=== PATIENT | female | born 1930 | race Caucasian/White ===

== ENCOUNTER 2020-10-16 14:37 | Emergency (ER) | payer OTHER, MEDICAID ==
[~2020-10-16] VITALS: Ht 152.4 cm; Wt 57.2 kg
[~2020-10-16 14:37] MED LIST: APIX2.5 PO; ASCO500T95 PO; DEC4 PO; ZINC220C28 PO
[2020-10-16 14:44] VITALS: BP 105/42
[2020-10-16] MEDS ORDERED: SODIUM CHLORIDE FLUSH 10 ML SYR IVF STA (15:21)
[2020-10-16 15:48] LABS: HEMATOCRIT 29.8 % (36-48); HEMOGLOBIN 9.9 g/dL (12.0-16.0); MEAN CORPUSCULAR HEMOGLOBIN 30 pg (27-31); MEAN CORPUSCULAR HGB CONC 33 g/dL (33-37); MEAN CORPUSCULAR VOLUME 89.1 fL (80-94); PLATELET COUNT (AUTO) 193 K/uL (140-450); RED BLOOD CELL COUNT(AUTO) 3.34 MIL/uL (4.20-5.40); RED CELL DISTRIBUTION WIDTH 15.7 % (11.6-13.7); WHITE BLOOD COUNT (AUTO) 10.3 K/uL (4.8-10.8)
[2020-10-16 16:00] LABS: BASOPHILS % (MANUAL) 1 % (0-2); LYMPHOCYTES % (MANUAL) 4 % (20-46); MONOCYTES % (MANUAL) 4 % (5-12)
[2020-10-16 16:05] LABS: ALBUMIN 2.5 g/dL (3.4-5.0); ANION GAP 11.7 (8-16); ASPARTATE AMINOTRANSFERASE 46 U/L (15-37); CARBON DIOXIDE 25.3 mmol/L (21-32); CHLORIDE 105 mmol/L (98-107); CREATININE 1.2 mg/dL (0.6-1.3); GLUCOSE 142 mg/dL (74-106); LIPASE 93 U/L (73-393); SODIUM SERUM 137 mmol/L (136-145); TOTAL BILIRUBIN 0.2 mg/dL (0.0-1.0); UREA NITROGEN, BLOOD 32 mg/dL (7-18)
[2020-10-16] MEDS ORDERED: KETOROLAC 15 MG/ML VIAL IVP ONE (16:25)
[2020-10-16] MEDS ORDERED: NACL 0.9% 1,000 ML IV ONE (16:25)
[2020-10-16] MEDS ORDERED: MAGN296S PO (17:54)
[2020-10-16] MEDS ORDERED: [UNRECOGNIZED DRUG - CODE] PO (17:56)
[2020-10-16 18:09] VITALS: BP 89/35
== END 2020-10-16 18:10 | disposition home or self-care (01) ==
LOC: MED 14:37
DX: K59.00 Constipation, unspecified (principal); E11.9 Type 2 diabetes mellitus without complications; I10 Essential (primary) hypertension; Z79.899 Other long term (current) drug therapy
CPT/HCPCS: 74176; 80053; 83615; 83690; 85025; 96361; 96374; 99284; J1885; J7030

== ENCOUNTER 2020-10-18 15:30 | Observation (INO) | payer OTHER, MEDICAID, SELFPAY ==
[~2020-10-18] VITALS: Ht 152.4 cm; Wt 59.9 kg
[~2020-10-18 15:30] MED LIST changes: +MAGN296S PO; +[UNRECOGNIZED DRUG - CODE] PO
[2020-10-18 15:39] VITALS: BP 113/45
--- NOTE | 2020-10-18 16:16 | NUR ---
DR MARCOS AT BEDSIDE EVALUATING PT
--- NOTE | 2020-10-18 16:20 | NUR ---
89 y/o F BIB daughter referred from Urgent Care to r/o DVT. Patient A&Ox4, ambulatory with slow, even gait. Daughter at bedside for translation states R thigh pain x 2 days that worsen today. Pt seen at and states 01/02, aching/intermittent, radiating to R leg. Patient noted with swelling and redness to right thigh. Denies any medications prior to arrival. Denies nausea, vomiting, fever, chills, SOB, chest pain, dizziness, headache. Skin red/warm/dry to R thigh. Pt placed into gown and cardiac cath lab technologist. VSS; respirations even/unlabored. Bed locked in lowest position, side rails x 1, call light in reach. PMH: HTN, DM2 Meds: Metoprlol ,simvastatin, lorsaan, vitamin D3, calcium carb, tresiba (Insulin U-100), ferrous sulfate, prophylthiour NKA
[2020-10-18] MEDS ORDERED: VANCOMYCIN 1,000 MG in DEXTROSE 5% 250 ML IV ONE (16:25)
--- NOTE | 2020-10-18 16:29 | NUR ---
US AT BEDSIDE
[2020-10-18] MEDS ORDERED: VANCOMYCIN 1,000 MG VIAL ONE (17:06)
[2020-10-18] MEDS ORDERED: cefTRIAXone 1,000 MG VIAL ONE (17:06)
--- NOTE | 2020-10-18 17:06 | NUR ---
LAB AT BEDSIDE.
[2020-10-18 17:22] LABS: BASOPHILS % (AUTO) 0.1 % (0.0-2.0); EOSINOPHILS % (AUTO) 0.1 % (0.0-4.0); HEMATOCRIT 28.9 % (36-48); HEMOGLOBIN 9.4 g/dL (12.0-16.0); LYMPHOCYTES # (AUTO) 0.5 K/uL (2.5-16.5); LYMPHOCYTES % (AUTO) 4.6 % (20.5-51.1); MEAN CORPUSCULAR HEMOGLOBIN 30 pg (27-31); MEAN CORPUSCULAR HGB CONC 33 g/dL (33-37); MEAN CORPUSCULAR VOLUME 90.7 fL (80-94); MONOCYTES # (AUTO) 0.4 K/uL (0.8-1.0); MONOCYTES % (AUTO) 3.4 % (1.7-9.3); NEUTROPHILS # (AUTO) 10.3 K/uL (1.8-7.7); NEUTROPHILS % (AUTO) 91.8 % (42.2-75.2); PLATELET COUNT (AUTO) 205 K/uL (140-450); RED BLOOD CELL COUNT(AUTO) 3.19 MIL/uL (4.20-5.40); RED CELL DISTRIBUTION WIDTH 15.2 % (11.6-13.7); WHITE BLOOD COUNT (AUTO) 11.2 K/uL (4.8-10.8)
[2020-10-18 17:31] LABS: ANION GAP 10.9 (8-16); CARBON DIOXIDE 23.9 mmol/L (21-32); CHLORIDE 103 mmol/L (98-107); CREATININE 1.3 mg/dL (0.6-1.3); GLUCOSE 162 mg/dL (74-106); POTASSIUM 4.8 mmol/L (3.5-5.1); SODIUM SERUM 133 mmol/L (136-145); UREA NITROGEN, BLOOD 29 mg/dL (7-18)
[2020-10-18 17:36] LABS: PROTHROMBIN TIME 9.7 secs (10.8-13.4)
--- NOTE | 2020-10-18 17:44 | NUR ---
Dr. Duncan is reevaluating patient at bedside.
--- NOTE | 2020-10-18 18:04 | NUR ---
Patient resting in low-fowlers in position of comfort. Daughter remains at bedside. patient monitor in place; VSS; respirations even/unlabored.
[2020-10-18] MEDS ORDERED: LORazepam 2 MG/ML VIAL IVP PRN (19:15)
[2020-10-18] MEDS ORDERED: MORPHINE SULFATE 2 MG/ML SYR IVP PRN (19:15)
[2020-10-18] MEDS ORDERED: ACETAMINOPHEN 325 MG TAB PO PRN (19:15)
[2020-10-18] MEDS ORDERED: HYDROcodone/APAP 5/325 MG 1 TAB TAB PO PRN (19:15)
[2020-10-18] MEDS ORDERED: ONDANSETRON 4 MG/2 ML VIAL IVP PRN (19:15)
[2020-10-18] MEDS ORDERED: VANCOMYCIN PER PHARMACY MC PRN (19:20)
--- NOTE | 2020-10-18 19:20 | NUR ---
Report and transfer of care endorsed to ANDRA Vasques.
--- NOTE | 2020-10-18 19:25 | NUR ---
DANIELA SWAB OBTAINED AND SENT TO LAB
--- NOTE | 2020-10-18 20:00 | NUR ---
AMBULATED TO BR, STEADY GAIT
--- NOTE | 2020-10-18 20:30 | NUR ---
RECEIVED REPORT FROM TOMAS SILVERMAN DAYSHIFT NURSE OVER THE PHONE, PT IN STABLE CONDITION.
[2020-10-18] MEDS ORDERED: PIPERACILLIN/TAZOBACTAM 3.375 GM in DEXTROSE 5% 50 ML IV SCH (21:00)
--- NOTE | 2020-10-18 21:30 | NUR ---
PT UP TO FLOOR AND TRANSFERRED TO ROOM 126 BED B. SHE IS AOX4 SERBIAN SPEAKING AND SKIN INTACT, SHE IS ON ROOM AIR AND HAS A R/FA 22 GUAGE SALINE LOCKED V/S FOLLOWS: T 98.3 P 72 R 20 B/P 123/51 02 100% ON ROOM AIR. PT ABLE TO AMBULATE TO BATHROOM WITH A STEADY GAIT. ALL UNIVERSAL FALLS PRECAUTIONS IN PLACE.
--- NOTE | 2020-10-19 | NUR ---
LAURA HUNG AND RUNNING ORDERED. PT EDUCATION PROVIDED AT BEDSIDE, PT VERBALIZED UNDERSTANDING.
[2020-10-19] MEDS ORDERED: PIPERACILLIN/TAZOBACTAM 2.25 GM VIAL IV ONE ×2 (00:19→06:43)
[2020-10-19 05:48] LABS: ALBUMIN 1.9 g/dL (3.4-5.0); ANION GAP 12.3 (8-16); ASPARTATE AMINOTRANSFERASE 16 U/L (15-37); CARBON DIOXIDE 25.9 mmol/L (21-32); CHLORIDE 107 mmol/L (98-107); CREATININE 1.3 mg/dL (0.6-1.3); GLUCOSE 128 mg/dL (74-106); MAGNESIUM 1.8 mg/dL (1.8-2.4); POTASSIUM 5.2 mmol/L (3.5-5.1); SODIUM SERUM 140 mmol/L (136-145); TOTAL BILIRUBIN 0.3 mg/dL (0.0-1.0); UREA NITROGEN, BLOOD 26 mg/dL (7-18)
[2020-10-19 06:37] LABS: BASOPHILS % (AUTO) 0.3 % (0.0-2.0); EOSINOPHILS # (AUTO) 0.2 K/uL (0-0.4); EOSINOPHILS % (AUTO) 1.4 % (0.0-4.0); HEMATOCRIT 28.3 % (36-48); HEMOGLOBIN 9.4 g/dL (12.0-16.0); LYMPHOCYTES # (AUTO) 0.6 K/uL (2.5-16.5); LYMPHOCYTES % (AUTO) 5.1 % (20.5-51.1); MEAN CORPUSCULAR HEMOGLOBIN 30 pg (27-31); MEAN CORPUSCULAR HGB CONC 33 g/dL (33-37); MEAN CORPUSCULAR VOLUME 89.3 fL (80-94); MONOCYTES # (AUTO) 0.3 K/uL (0.8-1.0); MONOCYTES % (AUTO) 2.8 % (1.7-9.3); NEUTROPHILS # (AUTO) 10.2 K/uL (1.8-7.7); NEUTROPHILS % (AUTO) 90.4 % (42.2-75.2); PLATELET COUNT (AUTO) 210 K/uL (140-450); RED BLOOD CELL COUNT(AUTO) 3.17 MIL/uL (4.20-5.40); RED CELL DISTRIBUTION WIDTH 15.3 % (11.6-13.7); WHITE BLOOD COUNT (AUTO) 11.3 K/uL (4.8-10.8)
[2020-10-19] MEDS: PIPER/TAZO 2.25GM/D5W PREMIX 50 ML IV SCH ×2 (06:51)
--- NOTE | 2020-10-19 07:25 | NUR ---
RECEIVE REPORT FROM TYPEWRITER OPERATOR AUTOMATIC NURSE FOR CONTINUITY OF CARE. PATIENT AWAKE. BREATHING EVEN AND UNLABORED. ALL SAFETY MEASURES IN PLACE. WILL CONTINUE TO MONITOR.
[2020-10-19 08:00] VITALS: BP 155/43
[2020-10-19] MEDS ORDERED: ENOXAPARIN 40 MG/0.4 ML SYR SUBQ SCH (09:00)
--- NOTE | 2020-10-19 09:03 | NUR ---
PATIENT HAS BEEN SCREENED AND CATEGORIZED LOW NUTRITION RISK. PATIENT WILL BE SEEN WITHIN 7 DAYS OF ADMISSION. 10/25/[address]
[2020-10-19] MEDS ORDERED: VANCOMYCIN 1,000 MG in DEXTROSE 5% 250 ML IV SCH (10:00)
[2020-10-19] MEDS: ENOXAPARIN 30 MG/0.3 ML SYR SUBQ SCH (10:22)
[2020-10-19] MEDS: ASPIRIN 81 MG TAB.CHEW PO SCH (10:23)
--- NOTE | 2020-10-19 10:23 | NUR ---
PATIENT AWAKE. BREATHING EVEN AND UNLABORED. ROUTINE MEDICATION GIVEN. ALL SAFETY MEASURES IN PLACE. WILL CONTINUE TO MONITOR.
--- NOTE | 2020-10-19 11:10 | NUR ---
DC PLANN[age] YRS OLD FEMALE PATIENT WAS ADMITTED FROM HOME WITH A DX OF CELLULITIS. PT HAS A HX OF DM AND HTN. VENOUS US OF BILATERAL LOWER EXTREMITY SHOWED NO DVT , MILD BILATERAL SUBCUTANEOUS EDEMA . ADMINISTERED IVF, IV ABX ZOSYN AND VANCOMYCIN AND CONTINUED HOME MEDS. RAPID COVID TEST NEGATIVE. BLOOD CULTURE PENDING. DC PLAN TO GO HOME WHEN STABLE. CM TO FOLLOW
[2020-10-19 12:00] VITALS: BP 125/57
[2020-10-19] MEDS ORDERED: PIPERACILLIN/TAZOBACTAM 2.25 GM in DEXTROSE 5% 50 ML IV SCH (12:00)
--- NOTE | 2020-10-19 12:40 | NUR ---
LATE ENTRY. STATED VANCOMYCIN AT 1109 DOSE COMPLETED AT 1240.
[2020-10-19 16:00] VITALS: BP 120/56
[2020-10-19 21:23] VITALS: BP 125/74
[2020-10-20 01:14] VITALS: BP 135/70
--- NOTE | 2020-10-20 01:29 | NUR ---
ativan given to calm her down
--- NOTE | 2020-10-20 02:50 | NUR ---
iv access came out i started a new one on left arm
[2020-10-20 04:52] VITALS: BP 128/78
--- NOTE | 2020-10-20 05:43 | NUR ---
pt selpt well pain was well controlled ,vss
[2020-10-20 06:00] LABS: ANION GAP 10.5 (8-16); CARBON DIOXIDE 25.9 mmol/L (21-32); CHLORIDE 107 mmol/L (98-107); CREATININE 1.3 mg/dL (0.6-1.3); GLUCOSE 148 mg/dL (74-106); POTASSIUM 5.4 mmol/L (3.5-5.1); SODIUM SERUM 138 mmol/L (136-145); UREA NITROGEN, BLOOD 23 mg/dL (7-18)
--- NOTE | 2020-10-20 07:20 | NUR ---
RECEIVED REPORT FROM FORMS ANALYST NURSE FOR CONTINUITY OF CARE. PATIENT IS SLEEPING. NO ACUTE DISTRESS NOTED. BREATHING IS EVEN AND UNLABORED. ALL SAFETY MEASURES IN PLACE. WILL CONTINUE TO MONITOR.
[2020-10-20 08:00] VITALS: BP 139/58
[2020-10-20] MEDS ORDERED: VANCOMYCIN 750 MG in DEXTROSE 5% 250 ML IV SCH (09:00)
[2020-10-20] MEDS: ASPIRIN 81 MG TAB.CHEW PO SCH (10:19)
[2020-10-20] MEDS: ENOXAPARIN 30 MG/0.3 ML SYR SUBQ SCH (10:22)
--- NOTE | 2020-10-20 10:22 | NUR ---
PATIENT IS AWAKE. ROUTINE MEDICATIONS GIVEN. GRANDSON AT BEDSIDE. ALL SAFETY MEASURES IN PLACE. WILL CONT. TO MONITOR.
--- NOTE | 2020-10-20 12:30 | NUR ---
PATIENT IN BED AWAKE AND EATING LUNCH.NO DISTRESS NOTED. ALL SAFETY MEASURES IN PLACE. WILL CONT. TO MONITOR.
[2020-10-20 13:01] LABS: BASOPHILS # (AUTO) 0.1 K/uL (0.00-0.22); EOSINOPHILS # (AUTO) 0.1 K/uL (0-0.4); HEMATOCRIT 32.8 % (36-48); HEMOGLOBIN 10.6 g/dL (12.0-16.0); LYMPHOCYTES # (AUTO) 1.5 K/uL (2.5-16.5); LYMPHOCYTES % (AUTO) 17.3 % (20.5-51.1); MEAN CORPUSCULAR HEMOGLOBIN 30 pg (27-31); MEAN CORPUSCULAR HGB CONC 33 g/dL (33-37); MEAN CORPUSCULAR VOLUME 91.3 fL (80-94); MONOCYTES # (AUTO) 0.3 K/uL (0.8-1.0); MONOCYTES % (AUTO) 3.5 % (1.7-9.3); NEUTROPHILS # (AUTO) 6.5 K/uL (1.8-7.7); NEUTROPHILS % (AUTO) 77.2 % (42.2-75.2); PLATELET COUNT (AUTO) 284 K/uL (140-450); RED BLOOD CELL COUNT(AUTO) 3.59 MIL/uL (4.20-5.40); RED CELL DISTRIBUTION WIDTH 15.8 % (11.6-13.7); WHITE BLOOD COUNT (AUTO) 8.5 K/uL (4.8-10.8)
[2020-10-20] MEDS ORDERED: LEVO750T51 PO (14:16)
[2020-10-20] MEDS ORDERED: SULF-59 PO (14:16)
--- NOTE | 2020-10-20 14:59 | NUR ---
PATIENT SLEEPING IN BED BREATHING EVEN AND UNLABORED. ALL SAFETY MEASURES IN PLACE. WILL CONT. TO MONITOR.
--- NOTE | 2020-10-20 16:24 | NUR ---
PATIENT RESTING IN BED. ASSISTED PATIENT TO RESTROOM. NO ACUTE DISTRESS NOTED. ALL SAFETY MEASURES IN PLACE. WILL CONT. TO MONITOR.
--- NOTE | 2020-10-20 17:12 | NUR ---
PATIENT IN BED AWAKE AND ALERT. NO ACUTE DISTRESS NOTED. DAUGHTER AT BEDSIDE. ALL SAFETY MEASURES IN PLACE. WILL CONT. TO MONITOR.
--- NOTE | 2020-10-20 18:30 | NUR ---
DISCHARGE INFO. GIVEN TO PATIENT. PATIENT SIGNED ALL D/C DOCUMENTATION. PATIENT VERBALIZED UNDERSTANDING. PENDING TRANSPORTATION.
--- NOTE | 2020-10-20 19:30 | NUR ---
WHEELED PATIENT TO LOBBY. PATIENT STABLE. NO DISTRESS NOTED.
[2020-10-27] MEDS ORDERED: CHOL200072 PO (21:17)
[2020-10-27] MEDS ORDERED: SIMV20TA1 PO (21:17)
[2020-10-27] MEDS ORDERED: FERR325E14 PO (21:17)
[2020-10-27] MEDS ORDERED: LOSA100T1 PO (21:17)
[2020-10-27] MEDS ORDERED: PTU50 PO (21:17)
[2020-10-27] MEDS ORDERED: METO25TE2 PO (21:17)
[2020-10-27] MEDS ORDERED: INSU100I3 SQ (21:17)
[2020-10-27] MEDS ORDERED: SEMA0.25 SQ (21:17)
[2020-10-30] MEDS ORDERED: AMOX1TAB7 PO (16:08)
== END 2020-10-20 19:45 | disposition home or self-care (01) ==
LOC: MED 15:30 → MMU 19:17 → INTOOBSV 19:17 → MMU 22:04
PROVIDERS: ADMIT Hospitalist; ATTEND Hospitalist
DX: L03.115 Cellulitis of right lower limb (principal); Z20.822 Contact with and (suspected) exposure to COVID-19; I10 Essential (primary) hypertension; E11.9 Type 2 diabetes mellitus without complications; Z79.899 Other long term (current) drug therapy
CPT/HCPCS: 36415; 76881; 80048; 80053; 80202; 82948; 83735; 85025; 85610; 85730; 87040; 87081; 87426; 93970; 96365; 96366; 96367; 96372; 96375; 99285; G0378; J0696; J1650; J2060; J2270; J2543; J3370; J7060